=== PATIENT | female | born 1980 | race African-American/Black ===

== ENCOUNTER 2017-02-22 09:44 | Emergency (ER) | payer OTHER ==
[~2017-02-22] VITALS: Ht 177.8 cm; Wt 135.6 kg
[~2017-02-22 09:44] MED LIST: ALDOMET250 MG PO; AMITRIPTYLINE H75 M1; BENAZEPRIL HCL20 MG; BONINE25 MG; COLACE100 MG PO; DERMOPLAST SPRA56 ML; DIPHENHIST50 MG PO; EXCEDRIN MIGRA1 EAC1 PO; FERRO-TIME325 MG PO; FLAGYL500 MG PO; IBUPROFEN 400400 M1 PO; IBUPROFEN 600600 M1 PO; IBUPROFEN 800800 MG PO; KEFLEX500 MG PO; LABETALOL 100100 MG OR; LOPRESSOR100 MG PO; LOTREL 10-20 M1 EACH PO; MECLIZINE 25 MG25 M1 PO; MULTIVITAMINS1 EAC7 PO; NAPROSYN500 MG PO; NEURONTIN 300300 M1; NEURONTIN 300300 M1 PO; NORCO 5-325 TA1 EACH PO; NORFLEX100 MG PO; ONDANSETRON HCL4 M2 PO; PERCOCET 5-3251 EACH PO; PHENERGAN 25 MG25 M1 PO; PRENATAL PO; PRILOSEC OTC20 MG PO; PRILOSEC40 MG PO; REGLAN 10 MG TA10 MG PO; TOPROL XL25 MG PO; TOPROL XL50 MG; TUCKS MEDICATE1 EAC1; XANAX 0.5 MG0.5 M1 PO; XANAX 0.5 MG0.5 MG PO
[2017-02-22] MEDS ORDERED: BENAZEPRIL HCL20 MG PO (09:57)
[2017-02-22] MEDS ORDERED: AMLODIPINE BESY10 MG PO (09:59)
[2017-02-22] MEDS ORDERED: LOPRESSOR50 MG PO (10:00)
[2017-02-22] MEDS ORDERED: MOBIC15 MG PO (10:13)
[2017-02-22] MEDS ORDERED: NORCO 5-325 TA1 EACH PO (10:14)
== END 2017-02-22 10:31 | disposition home or self-care (01) ==
LOC: ER 09:44
DX: M72.2 Plantar fascial fibromatosis (principal); I10 Essential (primary) hypertension; G43.909 Migraine, unspecified, not intractable, without status migrainosus

== ENCOUNTER 2017-07-21 10:04 | Emergency (ER) | payer OTHER ==
[~2017-07-21] VITALS: Ht 177.8 cm; Wt 133.4 kg
[~2017-07-21 10:04] MED LIST changes: +AMLODIPINE BESY10 MG PO; +BENAZEPRIL HCL20 MG PO; +LOPRESSOR50 MG PO; +MOBIC15 MG PO
[2017-07-21 11:03] LABS: ABSOLUTE NEUTROPHILS 4.9 thou/uL (1.4-8.2); BASOPHILS 0.7 % (0.0-2.0); EOSINOPHILS 1.4 % (0.0-3.0); HEMATOCRIT 34.7 % (37.0-47.0); HEMOGLOBIN 11.4 gm/dL (12.0-15.0); LYMPHOCYTES 25.1 % (24.0-44.0); MCHC 32.8 g/dL (28.0-37.0); MCV 73.3 fL (80.0-100.0); MONOCYTES 6.4 % (1.0-8.0); PLATELET COUNT 173 thou/uL (150-400); POLYS 66.4 % (36.0-66.0); RBC 4.74 mil/uL (4.20-5.00); RDW 17.9 % (10.5-14.5); WBC 7.3 thou/uL (4.0-11.0)
[2017-07-21 11:03] LABS: URINE BILIRUBIN NEGATIVE (Negative); URINE BLOOD 3+ (Negative); URINE COLOR YELLOW; URINE GLUCOSE-RANDOM* NEGATIVE (Negative); URINE KETONES NEGATIVE (Negative); URINE LEUKOCYTES-REFLEX NEGATIVE (Negative); URINE PROTEIN (DIPSTICK) NEGATIVE (Negative); URINE SPECIFIC GRAVITY 1.015 (1.005-1.035); URINE UROBILINOGEN 0.2 E.U./dl (0.2-1.0)
[2017-07-21 11:09] LABS: MANUAL DIFF NO
[2017-07-21 11:12] LABS: CALCIUM 8.6 mg/dL (8.5-10.1); CREATININE 0.8 mg/dL (0.6-1.0); POTASSIUM 4.3 mmol/L (3.5-5.1)
[2017-07-21 11:19] LABS: ALBUMIN 2.8 g/dL (3.4-5.0); TOTAL BILIRUBIN 0.3 mg/dL (<0.1-1.0); TOTAL PROTEIN 7.5 g/dL (6.4-8.2)
[2017-07-21 11:26] LABS: SQUAMOUS >10 Many /LPF (0-3); URINE RBC >20 Many /HPF (0-2)
[2017-07-21 11:27] LABS: CASTS None Seen /LPF (None Seen); CRYSTALS None Seen /LPF (None Seen); URINE WBC-REFLEX 0-5 Rare /HPF (0-5)
[2017-07-21] MEDS ORDERED: BENTYL 20 MG TA20 M1 PO (12:42)
[2017-07-21] MEDS ORDERED: ZOFRAN ODT4 M1 PO (12:42)
== END 2017-07-21 13:15 | disposition home or self-care (01) ==
LOC: ER 10:04
PROVIDERS: Physician Assistant
DX: R10.84 Generalized abdominal pain (principal); I10 Essential (primary) hypertension

== ENCOUNTER 2017-09-19 20:49 | Observation (INO) | payer OTHER ==
[~2017-09-19] VITALS: Ht 167.6 cm; Wt 137.4 kg
--- NOTE | ~2017-09-19 | H ---
[facility] [place] [address] HISTORY AND PHYSICAL Name: BRAN COPELAND Room #: 359-P [facility] M.R.#: [id number] Admission: 09/19/17 Attend Phys: Jm Dhillon MD, F Discharge: Date of : 76 Report #: [id number] THIS REPORT FOR: //name// CC: ISABELA physician/PCP Jm Dhillon DATE OF SERVICE: 09/20/2017 REASON FOR ADMISSION: Right lower quadrant abdominal pain. HISTORY OF PRESENT ILLNESS: This is a 37-year-old female patient who developed right lower quadrant abdominal pain this past Thursday. She initially thought this was pain secondary to gas and constipation. She tried taking milk of magnesia with no relief of her symptoms. Her pain progressively worsened yesterday. She was seen in the [facility] last night where she underwent a CT of the abdomen and pelvis showing changes consistent with acute appendicitis. She denies fever and has had chills recently. Denies nausea or vomiting. Her last bowel movement was yesterday, although small in amount, otherwise normal. PAST MEDICAL HISTORY: Significant for hypertension and sickle cell trait. PAST SURGICAL HISTORY: Denies. MEDICATIONS: Antihypertensive medication (benazepril, amlodipine and metoprolol). She also takes gabapentin for migraines. ALLERGIES: No known drug allergies. FAMILY HISTORY: Reviewed and noncontributory to this hospitalization. Heart disease and diabetes run in her family. Her mother also has sickle cell anemia. SOCIAL HISTORY: The patient denies use of tobacco or illicit drugs. She drinks alcohol on occasion. 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 REVIEW OF SYSTEMS: As per history of present illness. In addition: GENERAL: The patient denies unintentional weight loss. Denies fever or chills. HEENT: Denies changes in taste, vision, hearing, or smell. RESPIRATORY: Denies shortness of breath, COPD or asthma. CARDIOVASCULAR: Denies chest pain or palpitations. GASTROINTESTINAL: As per history of present illness. GENITOURINARY: Denies dysuria, urgency or increased urinary frequency. Her last menstrual period was on 08/31/2017. NEUROLOGIC: Denies numbness or tingling, has a history of migraine headaches. PSYCHIATRIC: Denies depression, anxiety or suicidal ideations. SKIN AND INTEGUMENTARY: Denies any skin lesions, rashes, or moles. [address] [address] HISTORY AND PHYSICAL Name: BRAN COPELAND Room #: 359-P ADM [facility]#: [id number] Admission: 09/19/17 Attend Phys: Jm Dhillon MD, F Discharge: Date of : 76 Report #: [id number] ENDOCRINE: Denies polydipsia, polyuria, heat or cold intolerance. HEMATOLOGIC: Denies easy bleeding, bruising or anemia. Has sickle cell trait. All other review of systems is negative. PHYSICAL EXAMINATION: VITAL SIGNS: Temperature 98.0, blood pressure 121/53, pulse 81, respirations 14. GENERAL: This is a morbidly obese (BMI 49) female patient, in no acute distress. HEENT: Atraumatic, normocephalic with moist mucosal membranes. Oropharynx is clear. NECK: Supple, no appreciable lymphadenopathy. Trachea is midline. CHEST: Clear bilaterally. No crackles or wheezes. CARDIOVASCULAR: Regular rate and rhythm. ABDOMEN: Soft and tender to palpation, greatest in the right lower quadrant over McBurney's point. She has no rebound or guarding. Negative Rovsing sign. No appreciable hernias. GENITOURINARY: Normal external female genitalia. EXTREMITIES: No clubbing, cyanosis or edema. NEUROLOGIC: Cranial nerves 2-12 grossly intact. PSYCHIATRIC: Normal mood and affect. SKIN AND INTEGUMENTARY: No acute inflammatory changes, rashes or lesions are present. LABORATORY DATA: CBC shows a white blood cell count 7.9, hemoglobin 11.7, hematocrit 36.0 and platelets 192. Electrolytes showed a sodium 139, potassium 3.5, chloride 105, CO2 of 28, BUN 14, creatinine 1.1 and glucose 90 with normal liver function tests. Urinalysis showed trace blood, but was otherwise negative. Urine test was negative. RADIOLOGIC STUDIES: CT of the abdomen and pelvis showed findings compatible with acute appendicitis. A small amount of free fluid was seen in the pelvis, likely physiologic. Gallstones were also seen; however, there were no inflammatory changes associated with this. IMPRESSION AND PLAN: This is a morbidly obese 37-year-old female patient with the above listed comorbidities, who has right lower quadrant abdominal pain and signs/symptoms of acute appendicitis. We discussed the pathophysiology and natural history of acute appendicitis as well as treatment alternatives and surgical options. The patient would benefit from laparoscopic appendectomy. We discussed the risks, benefits, and expectations of the operation in detail. The [facility] [address] [place] [address] HISTORY AND PHYSICAL Name: BRAN COPELAND Room #: 359-P [facility] Padmini#: [id number] Admission: 09/19/17 Attend Phys: Jm Dhillon MD, F Discharge: Date of : 76 Report #: [id number] patient expressed understanding and wishes to proceed. She will be taken to the operating room at the next earliest availability. <ELECTRONICALLY SIGNED> By: Jm Dhillon MD, FACS 09/21/17 0905 1529 1855 Jm Dhillon MD, FACS /nt
--- NOTE | ~2017-09-19 | O ---
[address] [address] OPERATIVE REPORT Name: BRAN COPELAND Room #: 359-P [facility].R.#: [id number] Admission: 09/19/17 Attend Phys: Jm Dhillon MD, F Discharge: Date of : 76 Report #: [id number] THIS REPORT FOR: //name// CC: ISABELA physician/PCP Jm Dhillon DATE OF SERVICE: 09/20/2017 SURGEON: Jm Dhillon MD SUPERVISOR PUMPING STATION: None. PREOPERATIVE DIAGNOSES: 1. Acute appendicitis. 2. Morbid obesity (BMI of 49). 3. Hypertension. 4. Migraine headaches. 5. Sickle cell trait. POSTOPERATIVE DIAGNOSES: 1. Acute suppurative, nonperforated appendicitis. 2. Incarcerated umbilical and epigastric hernias. 3. Intraabdominal adhesions. 4. Morbid obesity (BMI of 49). 5. Hypertension. 6. Migraine headaches. 7. Sickle cell trait. PROCEDURE: 1. Laparoscopic appendectomy. 2. Laparoscopic repair of incarcerated umbilical and epigastric hernias (separate procedure). 3. Laparoscopic lysis of adhesions. ANESTHESIA: General endotracheal anesthesia and local anesthetic. ESTIMATED BLOOD LOSS: 5 mL. SPECIMEN: 1. Appendix. 2. Incarcerated hernia content. COMPLICATIONS: None appreciated. INDICATION FOR PROCEDURE: This is a 37-year-old morbidly obese female patient who developed right lower quadrant abdominal pain this past Thursday. She [address] [address] OPERATIVE REPORT Name: BRAN COPELAND Room #: [address] [place], [place] [address]JoseJose#: [id number] Admission: 09/19/17 Attend Phys: Jm Dhillon MD, F Discharge: Date of : 76 Report #: [id number] initially thought her pain was secondary to gas and constipation. Her pain progressively worsened. She was seen in the [facility] where she underwent a CT of the abdomen and pelvis showing changes consistent with acute appendicitis. Her exam was consistent with this as well. The patient presents now for laparoscopic appendectomy. OPERATIVE FINDINGS: Upon entrance into the abdominal cavity, omentum was seen extending up to the anterior abdomen. The omentum entered an epigastric hernia and was incarcerated. The amount of omentum that was herniated into the defect was equivalent to the size of a johnna. Omentum was also present within the umbilical hernia defect. The epigastric hernia was located 1.5 cm cephalad to the umbilical defect. The defect itself was 1.5 cm wide x 1 cm long. The appendix was inflamed involving the distal 3/4 of the appendix. There was minimal to no acute inflammatory change associated with the base of the appendix. Purulent free fluid was present. There was no evidence for abscess or rupture. No other significant intra-abdominal pathology was seen. There was no evidence for Meckel diverticulum. After removal of the appendix, the staple line was hemostatic and secure. The hernias were repaired with separate emwtjw-ac-rawsj #1 PDS sutures with good closure. The epigastric hernia required a separate stab wound through the skin to repair the hernia. At the conclusion of the operation, the sponge, needle, and instrument counts were correct. Due to the purulent fluid within the pelvis, drain placement was necessary. DESCRIPTION OF PROCEDURE IN DETAIL: After the risks, benefits, and expectations of the operation were discussed in detail with the patient, informed consent was obtained. The patient was identified in the preoperative holding area. She was receiving scheduled IV antibiotics (Zosyn). The patient was then taken to the operating room and she was placed in the supine position. SCDs were placed on the patient's bilateral lower extremities and pneumatic compression was initiated. The patient was given IV sedation and she was intubated without incident. Her abdomen was prepped and draped in the standard sterile fashion. A time-out was performed to identify the correct patient and procedure. Local anesthetic was infiltrated into the skin and subcutaneous tissue infraumbilically where a curvilinear incision was made with a #15 blade scalpel. Dissection was carried down to the fascia. A small transverse fascial incision was made. After making the incision, omentum was seen extending up through a palpable hernia defect. The 12 mm Visiport was placed intraperitoneally with a 0-degree angled laparoscope. Pneumoperitoneum was achieved with insufflation of carbon dioxide to 15 mmHg. A 30-degree angled laparoscope was then inserted. The patient was placed in the Trendelenburg position. A suprapubic 5 mm and left lower quadrant 5 mm port were each placed under direct visualization after local anesthetic was infiltrated into the skin and subcutaneous tissue and appropriately sized incisions were made. Findings are as noted above. [address] [address] OPERATIVE REPORT Name: BRAN COPELAND DIMITRY Room #: 359-P [facility] [place] M.R.#: [id number] Admission: 09/19/17 Attend Phys: Jm Dhillon MD, F Discharge: Date of : 76 Report #: [id number] The omentum that was extending up to the anterior abdominal wall obscured the view of the appendix. I attempted to reduce the hernia content; however, it was initially unsuccessful. The omentum was then transected with the ultrasonic dissector with good hemostasis. Prior to transecting the omentum, care was taken to ensure that there was no bowel involvement. The patient was rotated to her left. The appendix was identified in the right lower quadrant. A window was made in the mesoappendix adjacent to the base of the appendix. A blue load endoscopic NELSON stapler was then used to staple and divide the appendix at its base. The mesoappendix was divided with the ultrasonic dissector with good hemostasis. The appendix and mesoappendix were then placed in an Endopouch and removed through the infraumbilical port. The abdominal wall fat and hernia contents were then reduced from each of the defects. The content was removed to be sent for specimen. After clearly defining both defects, a ocimsg-kr-uhfra #1 PDS suture was used to close the epigastric hernia through a stab wound 2-3 cm cephalad to the umbilicus. The suture was tied under direct visualization to ensure no incorporation of intra-abdominal content. Similarly, at the umbilical port site, a ojyesz-qf-vkubz 0 PDS suture was used to close that defect. The suture was tagged and the port was replaced. The abdominal cavity was reentered. The abdominal cavity was then copiously irrigated and suctioned and return of all drainage ran clear. Due to the purulent fluid seen within the pelvis, a 19 Luis drain was placed within the abdominal cavity and brought out through the suprapubic port site. The port was removed. The drain was secured to the skin with a 2-0 nylon suture. The drain was positioned intraabdominally to drain the pelvis. The umbilical port was then removed and the suture was tied under direct visualization to ensure no incorporation of intra-abdominal content. The abdominal cavity was then desufflated and the remaining port was removed. Interrupted subcuticular 4-0 Monocryl sutures and Dermabond were used to close the skin incisions. The patient tolerated the procedure well. She was awakened, extubated, and taken to recovery room in stable condition with no apparent intraoperative complications. <ELECTRONICALLY SIGNED> By: Jm Dhillon MD, FACS 09/21/17 0905 1732 1754 Jm Dhillon MD, FACS /nt
--- NOTE | ~2017-09-19 | S ---
[facility] [place] [address] SURGICAL PATH RPT PROCEDURE Name: BRAN COPELAND Room #: 359-[facility] [place]#: [id number] Admission: 09/19/17 Date of : 76 Discharge: 09/21/17 Report #: [id number] Path Case #: [id number] PATHOLOGY REPORT COLLECTION DATE: 09/21/2017 RECEIVED DATE: 09/21/2017 SUBMITTING PHYS: Dr. Jm Dhillon OTHER PHYS: SPECIMEN(S) RECEIVED: A.Appendix B.Incarcerated hernia contents * * * * * * * * * * * * FINAL DIAGNOSIS: A. Appendix, appendectomy: - Marked acute appendicitis along with marked serositis. B. Incarcerated hernia contents: - Fibroadipose connective tissue with areas of fat necrosis as well as reactive changes compatible with hernia sac. (IUV:mgr; 09/22/2017) PATHOLOGIST: Mildred Ash M.D. REPORT ELECTRONICALLY SIGNED BY: Mildred Ash M.D. DATE/TIME: 09/22/2017 15:48 * * * * * * * * * * * * GROSS PATHOLOGY: A. Received in formalin labeled "Bran Copeland, appendix" and consists of a 8.5 cm in length by a 1.7 cm in diameter appendix. The serosa is pink and hemorrhagic. There is exudate identified. The margin is inked and sectioning reveals a lumen varies from pinpoint of 0.3 cm. The wall is intact. The mucosa is pink and hemorrhagic. There are no fecaliths or masses identified. [employer] sections are submitted A1-A4. B. Received in formalin labeled ""Bran Copeland, incarcerated hernia contents" and consists of a few irregularly-shaped, lobulated, glistening, yellow orange, and hemorrhagic fatty fragments ranging in size from 1 cm-4 cm and aggregating to 6.0 x 5.9 x 3.0 cm. Sectioning reveals no underlying lesions. Airport Traffic Controller sections are submitted as B1. (ANN MARIE; 09/21/2017) CLINICAL HISTORY: Appendicitis [address] [address] [place] [address] SURGICAL PATH RPT PROCEDURE Name: BRAN COPELAND Room #: 359-P [facility] [place]#: [id number] Admission: 09/19/17 Date of : 76 Discharge: 09/21/17 Report #: [id number] Path Case #: [id number] INITIAL CPT CODE(S): A; 26599 B; 36189 Professional services performed by [facility] at [facility] [address] [place] [address] Technical services performed by [facility] at [address] [place] [address], [facility] [address] [address]. [facility] [address] [address] PHONE: [phone] DIRECTOR: Bruce W. Abdirahman, M.D. * * * END OF REPORT * * *
[~2017-09-19 20:49] MED LIST changes: +BENTYL 20 MG TA20 M1 PO; +ZOFRAN ODT4 M1 PO
[2017-09-19 20:57] VITALS: BP 153/93
[2017-09-19 21:25] LABS: ABSOLUTE NEUTROPHILS 4.4 thou/uL (1.4-8.2); BASOPHILS 0.9 % (0.0-2.0); EOSINOPHILS 0.9 % (0.0-3.0); HEMOGLOBIN 11.7 gm/dL (12.0-15.0); LYMPHOCYTES 34.3 % (24.0-44.0); MCH 23.7 pg (26.0-34.0); MCHC 32.4 g/dL (28.0-37.0); MCV 73.2 fL (80.0-100.0); MONOCYTES 8.1 % (1.0-8.0); PLATELET COUNT 192 thou/uL (150-400); POLYS 55.8 % (36.0-66.0); RBC 4.91 mil/uL (4.20-5.00); RDW 17.8 % (10.5-14.5); WBC 7.9 thou/uL (4.0-11.0)
[2017-09-19 21:32] LABS: ANION GAP 6 mmol/L (7-16); BUN 14 mg/dL (7-18); CALCIUM 9.2 mg/dL (8.5-10.1); CHLORIDE 105 mmol/L (98-107); CO2 28 mmol/L (21-32); CREATININE 1.1 mg/dL (0.6-1.0); GLUCOSE 90 mg/dL (74-106); POTASSIUM 3.5 mmol/L (3.5-5.1); SODIUM 139 mmol/L (136-145)
[2017-09-19 21:38] LABS: ALBUMIN 2.9 g/dL (3.4-5.0); DIRECT BILIRUBIN < 0.1 mg/dL (<0.1-0.3); SGOT 16 U/L (15-37); SGPT 22 U/L (30-65); TOTAL BILIRUBIN 0.3 mg/dL (<0.1-1.0)
[2017-09-19 22:04] LABS: URINE BILIRUBIN NEGATIVE (Negative); URINE BLOOD TRACE (Negative); URINE CLARITY CLEAR; URINE COLOR YELLOW; URINE GLUCOSE-RANDOM* NEGATIVE (Negative); URINE KETONES NEGATIVE (Negative); URINE LEUKOCYTES NEGATIVE (Negative); URINE NITRITE NEGATIVE (Negative); URINE PROTEIN (DIPSTICK) NEGATIVE (Negative); URINE SPECIFIC GRAVITY 1.015 (1.005-1.035); URINE UROBILINOGEN 0.2 E.U./dl (0.2-1.0)
[2017-09-20 06:05] VITALS: BP 111/53
[2017-09-20 06:15] VITALS: BP 121/53
[2017-09-20] MEDS ORDERED: HYDROCODONE-AP1 EAC6 PO (17:12)
[2017-09-20] MEDS ORDERED: AUGMENTIN 875-1 EACH PO (17:12)
[2017-09-20] MEDS ORDERED: SENNA-S TABLET1 EACH PO (17:12)
[2017-09-20 20:00] VITALS: BP 121/62
[2017-09-21 00:30] VITALS: BP 115/68
[2017-09-21 04:06] VITALS: BP 115/61
[2017-09-21 04:46] LABS: ABSOLUTE NEUTROPHILS 9.6 thou/uL (1.4-8.2); BASOPHILS 0.2 % (0.0-2.0); HEMATOCRIT 32.1 % (37.0-47.0); HEMOGLOBIN 10.2 gm/dL (12.0-15.0); LYMPHOCYTES 8.6 % (24.0-44.0); MCH 23.5 pg (26.0-34.0); MCHC 31.8 g/dL (28.0-37.0); MONOCYTES 5.4 % (1.0-8.0); PLATELET COUNT 168 thou/uL (150-400); POLYS 85.8 % (36.0-66.0); RBC 4.33 mil/uL (4.20-5.00); RDW 17.9 % (10.5-14.5); WBC 11.2 thou/uL (4.0-11.0)
[2017-09-21 04:55] LABS: CALCIUM 8.7 mg/dL (8.5-10.1); POTASSIUM 4.1 mmol/L (3.5-5.1)
[2017-09-21 18:06] VITALS: BP 115/61
== END 2017-09-21 18:30 | disposition home or self-care (01) ==
LOC: ER 20:49 → 3W 23:24 → EROBS 23:24 → 3W 09-20 06:07
PROVIDERS: Emergency Medicine; Surgery
DX: K35.80 Unspecified acute appendicitis (principal); K42.9 Umbilical hernia without obstruction or gangrene; K43.9 Ventral hernia without obstruction or gangrene; K66.0 Peritoneal adhesions (postprocedural) (postinfection); E66.01 Morbid (severe) obesity due to excess calories; I10 Essential (primary) hypertension; G43.909 Migraine, unspecified, not intractable, without status migrainosus; D57.3 Sickle-cell trait; Z68.42 Body mass index [BMI] 45.0-49.9, adult
CPT/HCPCS: 50010; 50101; 50249; 50331; 50378; 50411; 50555; 50558; 50739; 50740; 50962; 51489; 51975; 52265; 53307; 54022; 54118; 56525; 56526; 56527; 62110; 62900; 70005

== ENCOUNTER 2017-12-14 21:40 | Emergency (ER) | payer OTHER ==
[~2017-12-14] VITALS: Ht 177.8 cm; Wt 137.4 kg
[~2017-12-14 21:40] MED LIST changes: +AUGMENTIN 875-1 EACH PO; +HYDROCODONE-AP1 EAC6 PO; +SENNA-S TABLET1 EACH PO
[2017-12-14 22:06] LABS: URINE BILIRUBIN NEGATIVE (Negative); URINE BLOOD TRACE (Negative); URINE CLARITY CLEAR; URINE COLOR YELLOW; URINE GLUCOSE-RANDOM* NEGATIVE (Negative); URINE KETONES NEGATIVE (Negative); URINE LEUKOCYTES-REFLEX NEGATIVE (Negative); URINE NITRITE-REFLEX NEGATIVE (Negative); URINE PROTEIN (DIPSTICK) NEGATIVE (Negative); URINE SPECIFIC GRAVITY 1.025 (1.005-1.035); URINE UROBILINOGEN 0.2 E.U./dl (0.2-1.0)
[2017-12-14] MEDS ORDERED: FLEXERIL PO (22:22)
[2017-12-14] MEDS ORDERED: MOBIC7.5 MG PO (22:22)
== END 2017-12-14 22:33 | disposition home or self-care (01) ==
LOC: ER 21:40
PROVIDERS: Physician Assistant
DX: S39.012A Strain of muscle, fascia and tendon of lower back, initial encounter (principal); I10 Essential (primary) hypertension; G43.909 Migraine, unspecified, not intractable, without status migrainosus; F41.9 Anxiety disorder, unspecified; M79.7 Fibromyalgia; X58.XXXA Exposure to other specified factors, initial encounter; Y93.89 Activity, other specified; Y92.89 Other specified places as the place of occurrence of the external cause; Y99.8 Other external cause status

== ENCOUNTER 2017-12-19 14:51 | Emergency (ER) | payer OTHER ==
[~2017-12-19] VITALS: Ht 177.8 cm; Wt 137.4 kg
[~2017-12-19 14:51] MED LIST changes: +FLEXERIL PO; +MOBIC7.5 MG PO
[2017-12-19 15:35] LABS: URINE BILIRUBIN NEGATIVE (Negative); URINE BLOOD 3+ (Negative); URINE CLARITY CLEAR; URINE GLUCOSE-RANDOM* TRACE (Negative); URINE KETONES NEGATIVE (Negative); URINE PROTEIN (DIPSTICK) 2+ (Negative)
[2017-12-19 15:36] LABS: URINE COLOR ORANGE; URINE LEUKOCYTES-REFLEX 2+ (Negative); URINE NITRITE-REFLEX POSITIVE (Negative)
[2017-12-19 15:43] LABS: SQUAMOUS 4-10 Moderate /LPF (0-3)
[2017-12-19 15:44] LABS: BACTERIA-REFLEX 1-9 Few /HPF (None Seen); CASTS None Seen /LPF (None Seen); CRYSTALS None Seen /LPF (None Seen)
[2017-12-19] MEDS ORDERED: KEFLEX500 M1 PO (15:46)
== END 2017-12-19 16:09 | disposition home or self-care (01) ==
LOC: ER 14:51
PROVIDERS: Nurse Practitioner
DX: N39.0 Urinary tract infection, site not specified (principal); I10 Essential (primary) hypertension; G43.909 Migraine, unspecified, not intractable, without status migrainosus; M79.7 Fibromyalgia; F41.9 Anxiety disorder, unspecified

== ENCOUNTER 2019-03-21 22:46 | Emergency (ER) | payer OTHER ==
[~2019-03-21] VITALS: Ht 177.8 cm; Wt 137.0 kg
[~2019-03-21 22:46] MED LIST changes: +KEFLEX500 M1 PO
[2019-03-21 22:50] VITALS: BP 138/112
[2019-03-21] MEDS ORDERED: KEFLEX500 M1 PO (23:43)
== END 2019-03-21 23:55 | disposition home or self-care (01) ==
LOC: ER 22:46
DX: L03.115 Cellulitis of right lower limb (principal); L03.317 Cellulitis of buttock; I10 Essential (primary) hypertension; G43.909 Migraine, unspecified, not intractable, without status migrainosus; M79.7 Fibromyalgia; E11.9 Type 2 diabetes mellitus without complications; Z79.899 Other long term (current) drug therapy

== ENCOUNTER 2019-07-28 08:53 | Emergency (ER) | payer OTHER ==
[~2019-07-28] VITALS: Ht 177.8 cm; Wt 137.4 kg
[2019-07-28] MEDS ORDERED: KEFLEX500 M1 PO ×2 (10:29→10:56)
[2019-07-28] MEDS ORDERED: GENTAMICIN OPH3.5 G1 OPHTHALMIC ×2 (10:29→10:56)
[2019-07-28 10:59] VITALS: BP 126/73
== END 2019-07-28 11:00 | disposition home or self-care (01) ==
LOC: ER 08:53
DX: H00.021 Hordeolum internum right upper eyelid (principal); I10 Essential (primary) hypertension; M79.7 Fibromyalgia; G43.909 Migraine, unspecified, not intractable, without status migrainosus; F41.9 Anxiety disorder, unspecified

== ENCOUNTER 2019-12-17 22:38 | Emergency (ER) | payer OTHER ==
[~2019-12-17] VITALS: Ht 177.8 cm; Wt 137.0 kg
[~2019-12-17 22:38] MED LIST changes: +GENTAMICIN OPH3.5 G1 OPHTHALMIC
[2019-12-17] MEDS ORDERED: PREDNISONE 20 M20 M1 PO (22:47)
[2019-12-17] MEDS ORDERED: METHOCARBAMOL500 M2 PO (22:47)
[2019-12-17] MEDS ORDERED: HYDROCHLOROTHIA25 M2 PO (22:48)
[2019-12-18] MEDS ORDERED: NAPROSYN500 MG PO (00:05)
[2019-12-18] MEDS ORDERED: TRAMADOL 50 MG50 MG PO (00:05)
[2019-12-18 00:34] VITALS: BP 140/87
== END 2019-12-18 00:28 | disposition home or self-care (01) ==
LOC: ER 22:38
DX: S83.92XA Sprain of unspecified site of left knee, initial encounter (principal); M25.462 Effusion, left knee; I10 Essential (primary) hypertension; G43.909 Migraine, unspecified, not intractable, without status migrainosus; M79.7 Fibromyalgia; F41.9 Anxiety disorder, unspecified; Z79.899 Other long term (current) drug therapy; W01.0XXA Fall on same level from slipping, tripping and stumbling without subsequent striking against object, initial encounter; Y93.89 Activity, other specified; Y92.89 Other specified places as the place of occurrence of the external cause; Y99.8 Other external cause status

== ENCOUNTER 2020-08-25 22:41 | Emergency (ER) | payer OTHER ==
[~2020-08-25] VITALS: Ht 172.7 cm; Wt 137.0 kg
[~2020-08-25 22:41] MED LIST changes: +HYDROCHLOROTHIA25 M2 PO; +METHOCARBAMOL500 M2 PO; +PREDNISONE 20 M20 M1 PO; +TRAMADOL 50 MG50 MG PO
[2020-08-25 23:34] LABS: URINE BILIRUBIN NEGATIVE (Negative); URINE BLOOD 2+ (Negative); URINE CLARITY CLEAR; URINE COLOR YELLOW; URINE GLUCOSE-RANDOM* NEGATIVE (Negative); URINE KETONES NEGATIVE (Negative); URINE LEUKOCYTES-REFLEX NEGATIVE (Negative); URINE NITRITE-REFLEX NEGATIVE (Negative); URINE PROTEIN (DIPSTICK) NEGATIVE (Negative); URINE SPECIFIC GRAVITY 1.015 (1.005-1.035); URINE UROBILINOGEN 0.2 E.U./dl (0.2-1.0)
[2020-08-25 23:51] LABS: CASTS None Seen /LPF (None Seen); MUCUS 4-6 Moderate strn/LPF (None Seen); SQUAMOUS >10 Many /LPF (0-3)
[2020-08-25 23:52] LABS: BACTERIA-REFLEX 1-9 Few /HPF (None Seen); CRYSTALS None Seen /LPF (None Seen); URINE RBC 3-10 Few /HPF (0-2); URINE WBC-REFLEX 0-5 Rare /HPF (0-5)
[2020-08-26 00:10] LABS: BASOPHILS 1.2 % (0.0-2.0); EOSINOPHILS 1.8 % (0.0-3.0); HEMATOCRIT 35.6 % (37.0-47.0); HEMOGLOBIN 11.6 gm/dL (12.0-15.0); LYMPHOCYTES 37.8 % (24.0-44.0); MCH 25.2 pg (26.0-34.0); MCHC 32.5 g/dL (28.0-37.0); MCV 77.3 fL (80.0-100.0); MONOCYTES 8.1 % (1.0-8.0); PLATELET COUNT 192 thou/uL (150-400); POLYS 51.1 % (36.0-66.0); RBC 4.61 mil/uL (4.20-5.00); RDW 16.2 % (10.5-14.5); WBC 5.8 thou/uL (4.0-11.0)
[2020-08-26 00:16] LABS: CALCIUM 8.9 mg/dL (8.5-10.1); CREATININE 0.9 mg/dL (0.6-1.0); POTASSIUM 3.9 mmol/L (3.5-5.1)
[2020-08-26 00:21] LABS: ALBUMIN 2.8 g/dL (3.4-5.0); TOTAL BILIRUBIN 0.1 mg/dL (0.2-1.0); TOTAL PROTEIN 7.3 g/dL (6.4-8.2)
[2020-08-26] MEDS ORDERED: ZOFRAN ODT4 MG PO (02:10)
[2020-08-26] MEDS ORDERED: NORCO 10-325 T1 EACH PO (02:10)
[2020-08-26 02:19] VITALS: BP 138/67
== END 2020-08-26 02:20 | disposition home or self-care (01) ==
LOC: ER 22:41
PROVIDERS: Emergency Medicine
DX: K80.20 Calculus of gallbladder without cholecystitis without obstruction (principal); R10.11 Right upper quadrant pain; I10 Essential (primary) hypertension; G43.909 Migraine, unspecified, not intractable, without status migrainosus; M79.7 Fibromyalgia; E11.9 Type 2 diabetes mellitus without complications; F12.90 Cannabis use, unspecified, uncomplicated; Z79.899 Other long term (current) drug therapy

== ENCOUNTER 2021-02-03 23:16 | Emergency (ER) | payer OTHER ==
[~2021-02-03] VITALS: Ht 177.8 cm; Wt 139.7 kg
[~2021-02-03 23:16] MED LIST changes: +NORCO 10-325 T1 EACH PO; +ZOFRAN ODT4 MG PO
[2021-02-03 23:47] LABS: ABSOLUTE NEUTROPHILS 3.1 thou/uL (1.4-8.2); BASOPHILS 1.1 % (0.0-2.0); EOSINOPHILS 3.2 % (0.0-3.0); HEMATOCRIT 35.8 % (37.0-47.0); HEMOGLOBIN 11.6 gm/dL (12.0-15.0); LYMPHOCYTES 34.4 % (24.0-44.0); MCH 24.7 pg (26.0-34.0); MCHC 32.4 g/dL (28.0-37.0); MCV 76.4 fL (80.0-100.0); PLATELET COUNT 219 thou/uL (150-400); POLYS 51.3 % (36.0-66.0); RBC 4.68 mil/uL (4.20-5.00); RDW 16.5 % (10.5-14.5)
[2021-02-03 23:53] LABS: ANION GAP 8 mmol/L (7-16); BUN 12 mg/dL (7-18); CALCIUM 9.1 mg/dL (8.5-10.1); CHLORIDE 108 mmol/L (98-107); CO2 24 mmol/L (21-32); CREATININE 1.1 mg/dL (0.6-1.0); GLUCOSE 119 mg/dL (74-106); SODIUM 140 mmol/L (136-145)
[2021-02-04] LABS: POTASSIUM 3.7 mmol/L (3.5-5.1)
[2021-02-04 00:02] LABS: DIRECT BILIRUBIN < 0.1 mg/dL (<0.1-0.2); SGOT 26 U/L (15-37); SGPT 26 U/L (14-59); TOTAL BILIRUBIN 0.4 mg/dL (0.2-1.0); TOTAL PROTEIN 7.6 g/dL (6.4-8.2); TROPONIN-I <0.06 ng/mL (<0.06)
[2021-02-04] MEDS ORDERED: MOBIC15 MG PO (01:23)
[2021-02-04] MEDS ORDERED: FLEXERIL PO (01:23)
[2021-02-04 02:03] VITALS: BP 138/75
--- NOTE | 2021-02-04 09:33 | EKG ---
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 : 1980 Requested By: Candice Ford Order Number: [id number] MD: Fernando Bowman Measurements Intervals [place] Rate: 100 P: 43 DC: 183 QRS: -1 QRSD: 105 T: -18 QT: 330 QTc: 426 Interpretive Statements Sinus tachycardia Left ventricular hypertrophy Borderline T abnormalities, diffuse leads Compared to ECG 09/16/2016 18:52:24 T-wave abnormality now present Sinus rhythm no longer present Electronically Signed On 02-04-2021 9:32:44 CDT by Fernando Bowman [email or web address] <ELECTRONICALLY SIGNED> By: Fernando Bowman MD, [facility] 02/04/2132 30 30 Fernando Bowman MD, [facility] /EPI
== END 2021-02-04 02:05 | disposition home or self-care (01) ==
LOC: ER 23:16
PROVIDERS: Emergency Medicine
DX: M62.838 Other muscle spasm (principal); M54.10 Radiculopathy, site unspecified; I10 Essential (primary) hypertension; D86.9 Sarcoidosis, unspecified; G43.909 Migraine, unspecified, not intractable, without status migrainosus; M79.7 Fibromyalgia; F41.9 Anxiety disorder, unspecified; Z79.891 Long term (current) use of opiate analgesic; Z79.899 Other long term (current) drug therapy; Z72.89 Other problems related to lifestyle

== ENCOUNTER → 2021-02-14 | Outpatient (CLI) | payer OTHER | LOC: SJCVCIMAG 12:58 | PROVIDERS: ATTEND Family Medicine | DX: I70.202 Unspecified atherosclerosis of native arteries of extremities, left leg (principal); M79.604 Pain in right leg; M79.605 Pain in left leg ==

== ENCOUNTER → 2021-02-14 | Outpatient (CLI) | payer OTHER | LOC: RAD 15:16 | PROVIDERS: ATTEND Family Medicine | DX: Z12.31 Encounter for screening mammogram for malignant neoplasm of breast (principal) ==

== ENCOUNTER 2021-03-10 02:13 | Emergency (ER) | payer OTHER ==
[~2021-03-10] VITALS: Ht 177.8 cm; Wt 139.3 kg
[2021-03-10 04:44] LABS: ABSOLUTE NEUTROPHILS 4.4 thou/uL (1.4-8.2); BASOPHILS 1.4 % (0.0-2.0); EOSINOPHILS 2.6 % (0.0-3.0); HEMATOCRIT 36.3 % (37.0-47.0); MCH 25.1 pg (26.0-34.0); MCV 75.9 fL (80.0-100.0); MONOCYTES 6.3 % (1.0-8.0); PLATELET COUNT 211 thou/uL (150-400); POLYS 61.7 % (36.0-66.0); RBC 4.78 mil/uL (4.20-5.00); RDW 16.3 % (10.5-14.5); WBC 7.1 thou/uL (4.0-11.0)
[2021-03-10 04:54] LABS: URINE BILIRUBIN NEGATIVE (Negative); URINE BLOOD TRACE (Negative); URINE CLARITY CLEAR; URINE COLOR YELLOW; URINE GLUCOSE-RANDOM* NEGATIVE (Negative); URINE KETONES NEGATIVE (Negative); URINE LEUKOCYTES-REFLEX TRACE (Negative); URINE NITRITE-REFLEX NEGATIVE (Negative); URINE PROTEIN (DIPSTICK) NEGATIVE (Negative); URINE UROBILINOGEN 0.2 E.U./dl (0.2-1.0)
[2021-03-10 04:57] LABS: CALCIUM 8.8 mg/dL (8.5-10.1); POTASSIUM 3.9 mmol/L (3.5-5.1)
[2021-03-10 05:01] LABS: ALBUMIN 2.9 g/dL (3.4-5.0); TOTAL BILIRUBIN 0.2 mg/dL (0.2-1.0); TOTAL PROTEIN 7.5 g/dL (6.4-8.2)
[2021-03-10 06:43] VITALS: BP 150/79
== END 2021-03-10 06:47 | disposition home or self-care (01) ==
LOC: ER 02:13
PROVIDERS: Emergency Medicine
DX: K80.80 Other cholelithiasis without obstruction (principal); R10.30 Lower abdominal pain, unspecified; I10 Essential (primary) hypertension; G43.909 Migraine, unspecified, not intractable, without status migrainosus; M79.7 Fibromyalgia; F41.9 Anxiety disorder, unspecified; E11.9 Type 2 diabetes mellitus without complications; Z79.891 Long term (current) use of opiate analgesic; Z79.899 Other long term (current) drug therapy

== ENCOUNTER → 2021-09-02 | Outpatient (CLI) | payer OTHER | LOC: PUL 09:46 | PROVIDERS: ATTEND Family Medicine | DX: R05.9 Cough, unspecified (principal); Z20.822 Contact with and (suspected) exposure to COVID-19 ==